=== PATIENT | male | born 1995 ===

== ENCOUNTER 2018-05-13 05:29 | Emergency (ER) | payer MEDICAID ==
[2018-05-13 05:29] VITALS: BMI 28.8
--- NOTE | 2018-05-13 05:46 | C.PDOC ---
History Of Present Illness Patient presents to the ER agitated with a flight of ideas. Patient was just discharged from [facility]. Denies any complaints at this time. <Hank Perez - Last Filed: 05/13/18 15:22> <Jessie Bellamy - Last Filed: 05/13/18 13:09> History Per: Patient History/Exam Limitations: no limitations Onset/Duration Of Symptoms: Hrs Current Symptoms Are (Timing): Still Present Associated Symptoms: Agitation, Other (Flight of ideas) Involuntary Hold By: None Recent travel outside of the [place]: No <Hank Perez - Last Filed: 05/13/18 15:22> Chief Complaint (Nursing): Psychiatric Evaluation Past Medical History Vital Signs: Last Vital Signs Temp 98.7 F 05/13/18 07:35 Pulse 90 05/13/18 07:35 Resp 18 05/13/18 07:35 BP 123/57 L 05/13/18 07:35 Pulse Ox 98 05/13/18 07:35 <Jessie Bellamy - Last Filed: 05/13/18 13:09> Reviewed: Historical Data, Nursing Documentation, Vital Signs - Medical History PMH: Denies: Diabetes, Hepatitis, HIV, HTN, Seizures, Sexually Transmitted Disease Family History: States: Unknown Family Hx - Social History Hx Alcohol Use: Yes Hx Substance Use: Yes <Hank Perez - Last Filed: 05/13/18 15:22> Review Of Systems Constitutional: Negative for: Fever, Chills Cardiovascular: Negative for: Chest Pain, Palpitations Respiratory: Negative for: Cough, Shortness of Breath Gastrointestinal: Negative for: Nausea, Vomiting, Abdominal Pain Psych: Positive for: Other (Agitated, Flight of ideas) <Hank Perez - Last Filed: 05/13/18 15:22> Physical Exam - Physical Exam Appears: Non-toxic, Other (Anxious, Agitated, Flight of ideas) Skin: Normal Color, Warm, Dry Head: Atraumatic, Normacephalic Eye(s): bilateral: Normal Inspection Oral Mucosa: Moist Chest: Symmetrical, No Tenderness Cardiovascular: Rhythm Regular Respiratory: Normal Breath Sounds, No Rales, No Rhonchi, No Wheezing Gastrointestinal/Abdominal: Soft, No Tenderness Extremity: Normal ROM (x4) Neurological/Psych: Oriented x3, Normal Speech <Hank Perez - Last Filed: 05/13/18 15:22> ED Course And Treatment - Laboratory Results Result Diagrams: 05/13/18 06:01 05/13/18 06:01 ECG: Interpreted By Me, Viewed By Me ECG Rhythm: Sinus Rhythm Rate From EC (bpm) <Jessie Bellamy - Last Filed: 05/13/18 13:09> - Laboratory Results Result Diagrams: 05/13/18 06:01 05/13/18 06:01 <Hank Perez Perry - Last Filed: 05/13/18 15:22> Progress - Re-Evaluation Re-evaluation Note: 05/13/18 08:08 per crisis, PT NEEDS [facility] SCREEN FOR PSYCHOSIS AND LABILE BEHAVIOR. 05/13/18 11:24 ACCEPTED FOR [facility]. PENDING BED 05/13/18 13:[address] LYMAN FU CRISIS DISPO - Data Reviewed Data Reviewed: Lab, Old records <Jessie Bellamy - Last Filed: 05/13/18 13:09> Disposition <Jessie Bellamy - Last Filed: 05/13/18 13:09> - Disposition Disposition Time: 07:00 - POA Present On Arrival: None <Hank Perez - Last Filed: 05/13/18 15:22> - Disposition Condition: STABLE Forms: [employer] [facility] (Malay) - Clinical Impression Clinical Impression: Alcohol abuse, Psychiatric disturbance - Scribe Statement The provider has reviewed the documentation as recorded by the Scribe Sanford Lee All medical record entries made by the Scribe were at my direction and personally dictated by me. I have reviewed the chart and agree that the record accurately reflects my personal performance of the history, physical exam, medical decision making, and the department course for this patient. I have also personally directed, reviewed, and agree with the discharge instructions and disposition. <Hank Perez - Last Filed: 05/13/18 15:22>
[2018-05-13 06:04] LABS: BASO # 0.1 K/uL (0.0-0.2); BASO % 0.7 % (0.0-2.0); EOS # 0.2 K/uL (0.0-0.7); HEMOGLOBIN 14.6 g/dL (12.0-18.0); LYMPH # 2.9 K/uL (1.0-4.3); LYMPH % 30.4 % (20.0-40.0); MEAN CELL VOLUME 86.6 fL (80.0-94.0); MEAN CORPUSCULAR HEMOGLOBIN 29.2 pg (27.0-31.0); MEAN CORPUSCULAR HGB CONC 33.8 g/dL (33.0-37.0); MEAN PLATELET VOLUME 8.6 fL (7.2-11.7); MONO # 0.8 K/uL (0.0-0.8); MONO % 8.5 % (0.0-10.0); NEUT # 5.6 K/uL (1.8-7.0); NEUT % 58.4 % (50.0-75.0); RED CELL DISTRIBUTION WIDTH 14.2 % (11.5-14.5); WHITE BLOOD COUNT 9.6 K/uL (4.8-10.8)
[2018-05-13 06:24] LABS: ALB/GLOB RATIO 1.7 (1.0-2.1); ALBUMIN 5.1 g/dL (3.5-5.0); ALT/SGPT 23 U/L (21-72); AST/SGOT 20 U/L (17-59); BLOOD UREA NITROGEN 11 mg/dL (9-20); CALCIUM 9.2 mg/dl (8.6-10.4); GFR NON-AFRICAN AMERICAN > 60
[2018-05-13 07:05] LABS: URINE BILIRUBIN NEGATIVE (NEGATIVE); URINE BLOOD NEGATIVE (NEGATIVE); URINE CLARITY Clear (Clear); URINE COLOR Yellow (YELLOW); URINE GLUCOSE (UA) NORMAL (Normal); URINE LEUKOCYTE ESTERASE NEG Leu/uL (Negative); URINE PROTEIN NEGATIVE (NEGATIVE); URINE UROBILINOGEN NORMAL mg/dL (0.2-1.0)
[2018-05-13 07:14] LABS: BARBITURATES, UR NEGATIVE (NEGATIVE); BENZODIAZEPINES, UR NEGATIVE (NEGATIVE); OPIATES, UR NEGATIVE (NEGATIVE); PHENCYCLIDINE, UR NEGATIVE (NEGATIVE)
--- NOTE | 2018-05-13 12:06 | RAD ---
HISTORY: MED CLEAR COMPARISON: No prior. TECHNIQUE: Chest, one view. FINDINGS: Examination limited by habitus. LUNGS: No focal consolidation. Please note that chest x-ray has limited sensitivity for the detection of pulmonary masses. PLEURA: No significant pleural effusion identified. No definite pneumothorax . CARDIOVASCULAR: Heart size appears within normal limits. No significant atherosclerotic calcification present. OSSEOUS STRUCTURES: No acute osseous abnormality identified. VISUALIZED UPPER ABDOMEN: Unremarkable. OTHER FINDINGS: None. IMPRESSION: No focal consolidation.
--- NOTE | 2018-05-14 12:26 | PCM.PSYCH ---
Initial Psychiatric Evaluation - Initial Psychiatric Evaluation Type of Admission: Voluntary Legal Status: Capacity Chief Complaint (in patient's own words): I am feeling lorne.' History of Present Illness and Precipitating Events: This is a 22 years old male who was escorted to the ED because of disorganized behavior by the [place] police. Patient appears very disorganized and internally preoccupied throughout the interview. He was a poor historian. He was superficially cooperative but guarded about the details. Per hospital charts, patient was just discharged yesterday from the [facility] emergency department. Following discharge from [facility], pt presented to [place] [employer] who then called EMS. Patient remains delusional, paranoid and bizarre. He appeared to have loose associations and he remained irritable and agitated. 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 Past medical history None reported Current Medications: Active Medications Generic Name Dose Route Start Last Admin Trade Name Freq PRN Reason Stop Dose Admin Benztropine Mesylate 1 mg 05/13/18 19:27 Cogentin PO Q6H PRN EPS, dystonia Haloperidol 5 mg 05/13/18 19:27 Haldol PO Q6H PRN Agitation Haloperidol Lactate 5 mg 05/13/18 19:27 Haldol IM Q6H PRN severe agitation Lorazepam 1 mg 05/13/18 19:27 Ativan PO Q6H PRN severe anxiety Past Psychiatric History - Past Psychiatric History Previous Treatment History: Inpatient Pertinent Medical Hx (Current Medical&Sleep Prob, Allergies): Allergies Allergy/AdvReac Type Severity Reaction Status Date / Time No Known Allergies Allergy Verified 05/03/18 02:09 Ibuprofen [Motrin Tab] 600 mg PO Q6 #30 tab 05/02/18 Review of Systems - Review of Systems All systems: reviewed and no additional remarkable complaints except - Psychiatric Psychiatric: Anxiety, Auditory Hallucinations, Irritability, Paranoia Mental Status Examination - Personal Presentation Personal Presentation: Looks stated age - Affect Affect: Broad - Reliability in Providing Information Reliability in Providing Information: Poor, due to alteration in thoughts, Poor, due to altered mood - Speech Speech: Disorganized - Mood Mood: Anxious - Formal Thought Process Formal Thought Process: Delusions, Paranoia, Loosening of associations, Flight of ideas, Circumstantial - Obsessions/Compulsions Obsessions: No Compulsions: No - Cognitive Functions Orientation: Person, Place, Situation, Time Sensorium: Alert Attention/Concentration: Attentive Abstract Thinking: [place] Estimate of Intelligence: Below average Judgement: Imparied, as evidence by: Poor judgement, Imparied, as evidence by: Lack of insight into illness - Risk Risk: Diminished functioning - Limitations Limitations: Living alone DSM 5 DX - DSM 5 DSM 5 Diagnosis: Brief psychotic disorder Rule out schizophrenia paranoid type - Recommended/Plan of Treatment Treatment Recommendations and Plan of Treatment: Brief psychotic disorder Rule out schizophrenia paranoid type Supportive therapy Patient has been accepted by the [facility] for involuntary commitment.. - Smoking Cessation Smoking Cessation Initiated: No
[2018-05-14 17:59] VITALS: O2SAT 98
[2018-05-14 19:39] VITALS: BP 105/70; PULSE 68; RESP 18; TEMP 97.8
--- NOTE | 2018-05-14 22:13 | CARD ---
APPROVED REPORT Date of service: 05/13/2018 EKG Measurement Heart [id number] <Conclusion> Normal sinus rhythm with sinus arrhythmia Normal ECG
== END 2018-05-14 19:49 | disposition short-term general hospital (02) ==
LOC: C.ER 05:29
DX: F29 Unspecified psychosis not due to a substance or known physiological condition (principal)